=== PATIENT | female | born 1955 | race Native Hawaiian/Other Pacific Islander ===

== ENCOUNTER 2016-11-24 07:29 | Outpatient (CLI) | payer OTHER | END 2016-11-24 19:23 | disposition home or self-care (01) | LOC: CT 07:29 | DX: Z12.31 Encounter for screening mammogram for malignant neoplasm of breast (principal); R11.0 Nausea | CPT/HCPCS: 36415; 82565; 84520; G0202-TC; Q9963 ==

== ENCOUNTER 2016-12-10 12:46 | Outpatient (CLI) | payer OTHER | END 2016-12-10 14:00 | disposition home or self-care (01) | LOC: MRI 12:46 | DX: K56.1 Intussusception (principal) ==

== ENCOUNTER 2018-01-22 08:40 | Outpatient (CLI) | payer OTHER | END 2018-01-22 22:15 | disposition home or self-care (01) | LOC: MAMMO 08:40 | DX: A09 Infectious gastroenteritis and colitis, unspecified (principal); R10.13 Epigastric pain; Z12.31 Encounter for screening mammogram for malignant neoplasm of breast | CPT/HCPCS: 36415; 82150; 82705; 83690; 87324; 87328; 87329; 87449 ==